=== PATIENT | female | born 1955 | race Caucasian/White ===

== ENCOUNTER 2023-05-13 14:37 | Emergency (ER) | payer MEDICARE, MEDICAID ==
[~2023-05-13] VITALS: Ht 165 cm; Wt 100.0 kg
--- NOTE | 2023-05-13 15:04 | ED General ---
General Chief Complaint: Dizziness/Syncope Stated Complaint: POSS SEIZURE Nursing Triage Note: PT ARRIVED PER EMS. PT CO OF SYNCOPAL EPISODE. PT WAS CUTTING UP CHICKEN AND WENT DOWN TO FLOOR. PT REMEBERS EPISODE. PT STATES R HAND CONTRACTED UP BUT IS OK NOW. PT DENIES HITTING HEAD. PT STATES HAD ETOH POISONING 7 MONTHS AGO AND HAD NOT DRANK SINCE. PAST 4 DAYS HAS DRANK 2 BOXES OF WINE. Source of Information: Patient Exam Limitations: No Limitations History of Present Illness Date Seen by Provider: May 13, 2023 Time Seen by Provider: 14:50 Initial Comments 68-year-old female presents to the ER via EMS. She states that her right arm started shaking and then curled up and she fell to the floor. States she remembers falling, denies any loss of consciousness. She states she was also flopping while she was on the ground. She is concerned this was a seizure. After this episode, she was sweating and very hot. She is requesting a CT of her head, because she has stage IV lung cancer which metastasized to the bones. She states she is worried that it has metastasis to her brain. She states she has been in remission for her lung cancer for 5 years. She states that approximately 2 weeks ago she had shaking in her right arm which lasted for few minutes. She states she now feels back to normal. She denies fevers, dizzi ness, chest pain, abdominal pain, nausea, vomiting, diarrhea. She states that lately she has been having some shortness of breath due to her neighbor smoking. She states that over the past 4 days she has drank 2 boxes of wine. She also has some mild swelling to her right upper jaw, she thinks she has a dental abscess. She denies any other past medical history, does not take any medications regularly. Allergies and Home Medications Allergies Coded Allergies: No Known Drug Allergies (Unverified , 05/13/23) Patient Home Medication List Home Medication List Reviewed: Yes Review of Systems Review of Systems Constitutional: see HPI Past Yozopcb-Sqgygu-Fpodyg Hx Patient Social History Tobacco Use?: No Substance use?: No Alcohol type: Wine Alcohol Frequency: Daily Pt feels they are or have been: No Immunizations Up To Date First/Initial COVID19 Vaccinat: YES Second COVID19 Vaccination Keegan: YES Third COVID19 Vaccination Date: YES Past Medical History Surgery/Hospitalization HX: LUNG CA, PORT Physical Exam Vital Signs Vital Signs - First Documented 05/13/23 05/13/23 14:37 21:19 Temp 37.1 Pulse 108 Resp 18 B/P (MAP) 133/86 (102) Pulse Ox 94 O2 Delivery Room Air Capillary Refill : Less Than 3 Seconds Height, Weight, BMI Height: '" Weight: lbs. oz. kg; 36.00 BMI Method: General Appearance: No Apparent Distress, WD/WN HEENT: TMs Normal, Normal ENT Inspection, Other (Dental abscess right upper teeth, swelling to right upper jaw/face) Neck: Normal Inspection, Supple Respiratory: Lungs Clear, Normal Breath Sounds, No Accessory Muscle Use, No Respiratory Distress Cardiovascular: Regular Rate, Rhythm Extremity: Normal Inspection, Normal Range of Motion Neurologic/Psychiatric: Alert, No Motor/Sensory Deficits (Normal strength), Normal Mood/Affect, splitting machine tender II-XII Norm as Tested Skin: Normal Color, Warm/Dry Progress/Results/Core Measures Suspected Sepsis SIRS Temperature: Pulse: 108 Respiratory Rate: 18 Laboratory Tests 05/13/23 15:04: White Blood Count 14.1H Blood Pressure 133 /86 Mean: 102 Laboratory Tests 05/13/23 15:04: Creatinine 0.88, Platelet Count 279, Total Bilirubin 0.3 Results/Orders Lab Results Laboratory Tests Test 05/13/23 15:00 05/13/23 15:04 05/13/23 15:27 Range/Units Serum Alcohol < 10 <10 MG/DL White Blood Count 14.1 H 4.3-11.0 10^3/uL Red Blood Count 3.36 L 3.80-5.11 10^6/uL Hemoglobin 10.2 L 11.5-16.0 g/dL Hematocrit 31 L 35-52 % Mean Corpuscular Volume 94 80-99 fL Mean Corpuscular Hemoglobin 30 25-34 pg Mean Corpuscular Hemoglobin Concent 33 32-36 g/dL Red Cell Distribution Width 14.7 H 10.0-14.5 % Platelet Count 279 130-400 10^3/uL Mean Platelet Volume 11.7 9.0-12.2 fL Immature Granulocyte % (Auto) 1 % Neutrophils (%) (Auto) 86 H 42-75 % Lymphocytes (%) (Auto) 8 L 12-44 % Monocytes (%) (Auto) 5 0-12 % Eosinophils (%) (Auto) 0 0-10 % Basophils (%) (Auto) 0 0-10 % Neutrophils # (Auto) 12.1 H 1.8-7.8 10^3/uL Lymphocytes # (Auto) 1.1 1.0-4.0 10^3/uL Monocytes # (Auto) 0.7 0.0-1.0 10^3/uL Eosinophils # (Auto) 0.0 0.0-0.3 10^3/uL Basophils # (Auto) 0.1 0.0-0.1 10^3/uL Immature Granulocyte # (Auto) 0.2 H 0.0-0.1 10^3/uL Neutrophils % (Manual) 89 % Lymphocytes % (Manual) 4 % Monocytes % (Manual) 7 % Eosinophils % (Manual) 0 % Basophils % (Manual) 0 % Band Neutrophils 0 % Blood Morphology Comment NORMAL Sodium Level 135 135-145 MMOL/L Potassium Level 4.6 3.6-5.0 MMOL/L Chloride Level 102 98-107 MMOL/L Carbon Dioxide Level 24 21-32 MMOL/L Anion Gap 9 5-14 MMOL/L Blood Urea Nitrogen 12 7-18 MG/DL Creatinine 0.88 0.60-1.30 MG/DL Estimat Glomerular Filtration Rate 72 BUN/Creatinine Ratio 14 Glucose Level 116 H 70-105 MG/DL Calcium Level 8.7 8.5-10.1 MG/DL Corrected Calcium 8.9 8.5-10.1 MG/DL Magnesium Level 1.9 1.6-2.4 MG/DL Total Bilirubin 0.3 0.1-1.0 MG/DL Aspartate Amino Transf (AST/SGOT) 15 5-34 U/L Alanine Aminotransferase (ALT/SGPT) 10 0-55 U/L Alkaline Phosphatase 103 40-136 U/L Total Protein 6.7 6.4-8.2 GM/DL Albumin 3.8 3.2-4.5 GM/DL Urine Color YELLOW Urine Clarity CLEAR Urine pH 6.5 5-9 Urine Specific [place] 1.020 1.016-1.022 Urine Protein NEGATIVE NEGATIVE Urine Glucose (UA) NEGATIVE NEGATIVE Urine Ketones NEGATIVE NEGATIVE Urine Nitrite NEGATIVE NEGATIVE Urine Bilirubin NEGATIVE NEGATIVE Urine Urobilinogen 0.2 < = 1.0 MG/DL Urine Leukocyte Esterase NEGATIVE NEGATIVE Urine RBC (Auto) TRACE-I H NEGATIVE Urine RBC RARE /HPF Urine WBC NONE /HPF Urine Squamous Epithelial Cells 0-2 /HPF Urine Crystals NONE /LPF Urine Bacteria NEGATIVE /HPF Urine Casts PRESENT /LPF Urine Hyaline Casts RARE /LPF Urine Mucus NEGATIVE /LPF Urine Culture Indicated NO Urine Opiates Screen NEGATIVE NEGATIVE Urine Oxycodone Screen NEGATIVE NEGATIVE Urine Methadone Screen NEGATIVE NEGATIVE Urine Propoxyphene Screen NEGATIVE NEGATIVE Urine Barbiturates Screen NEGATIVE NEGATIVE Ur Tricyclic Antidepressants Screen NEGATIVE NEGATIVE Urine Phencyclidine Screen NEGATIVE NEGATIVE Urine Amphetamines Screen NEGATIVE NEGATIVE Urine Methamphetamines Screen NEGATIVE NEGATIVE Urine Benzodiazepines Screen NEGATIVE NEGATIVE Urine Cocaine Screen NEGATIVE NEGATIVE Urine Cannabinoids Screen NEGATIVE NEGATIVE My Orders Orders - SHAHNAZ GAGE APRN Ct Head Wo (05/13/23 14:55) Ed Iv/Invasive Line Start (05/13/23 14:55) Cbc With Automated Diff (05/13/23 14:55) Magnesium (05/13/23 14:55) Ekg Tracing (05/13/23 14:55) Comprehensive Metabolic Panel (05/13/23 14:55) Monitor-Rhythm Ecg Trace Only (05/13/23 14:55) Ns Iv 1000 Ml (Sodium Chloride 0.9%) (05/13/23 15:15) Manual Differential (05/13/23 15:04) Alcohol (05/13/23 15:28) Drug Screen Stat (Urine) (05/13/23 15:28) Ua Culture If Indicated (05/13/23 15:28) Levetiracetam Injection (Keppra Injectio (05/13/23 17:00) Dexamethasone Injection (Decadron Inje (05/13/23 17:00) Amoxicillin/Clavulanate Tablet (Augmenti (05/13/23 17:30) Medications Given in ED Current Medications Medications Dose Ordered Sig/Nhan Route Start Time Stop Time Status Last Admin Dose Admin Amoxicillin/ Clavulanate Potassium 875 mg ONCE ONCE PO 05/13/23 17:30 05/13/23 17:31 DC 05/13/23 17:50 875 MG Dexamethasone Sodium Phosphate 10 mg ONCE ONCE IV 05/13/23 17:00 05/13/23 17:01 DC 05/13/23 17:05 10 MG Levetiracetam 500 mg/Sodium Chloride 105 ml @ 210 mls/hr ONCE ONCE IV 05/13/23 17:00 05/13/23 17:29 DC 05/13/23 17:05 210 MLS/HR Vital Signs/I&O 05/13/23 05/13/23 14:37 21:19 Temp 37.1 36.5 Pulse 108 76 Resp 18 16 B/P (MAP) 133/86 (102) 114/65 Pulse Ox 94 91 O2 Delivery Room Air Capillary Refill : Less Than 3 Seconds Blood Pressure Mean: 102 Progress Note : Progress Note Patient seen and evaluated, resting comfortably in bed, no acute distress. Based on exam and symptoms, work-up initiated including CBC, CMP, magnesium, alc ohol level, UA, UDS, EKG, CT head. IV fluids ordered. She reports that she has withdrawn from alcohol in the past. Symptoms sound like a possible focal seizure. 1540 radiologist called with the read of the CT scan. There is a lesion in the left frontal region likely malignant. There is a minimal 4 mm midline shift. Other differentials include hemorrhage or abscess. 1600 I called [facility] for consult with neurosurgery because patient's oncologist is at [facility]. Labs reviewed at this time. CBC shows elevated WBC 14.1, elevated neutrophil percentage 86. Hemoglobin decreased 10.2, hematocrit decreased 31. CMP grossly normal. Magnesium normal. Urinalysis shows trace intact RBCs, negative for infection. Drug screen negative. Alcohol level negative. Although alcohol level is negative, I do not think that patient is withdrawing from alcohol. The shaking she had earlier could have been alcohol withdrawal, but she currently does not have any tremors. She does not have any other symptoms of alcohol withdrawal at this time. Heart rate has improved. Blood pressure mildly elevated. Her symptoms are more likely related to the lesion in her brain. Elevated WBC could be related to dental abscess. The WBC of elevation could also be related to possible brain abscess which is one of the differentials of the CT, although I think a brain abscess is less likely since she has no fever, headache, mental status changes, focal neurologic deficits, nausea, vomiting, nuchal rigidity. Will give a dose of Augmentin for dental abscess. 1618 Dr. Mark Ospina, neurosurgery, called back with recommendations to either admit or transfer patient. He recommends starting patient on anticonvulsant like Keppra 500 mg twice daily and dexamethasone. He looked at the images, states that the lesion is likely located within the motor strip. States that she will need an MRI, and the MRI will determine the treatment plan. He states that since the lesion is likely within the motor strip, she will likely need an awake craniotomy which would need to be done at . He states that [facility] could accept her as a transfer, but states that she may need to be transferred again to . Results and plan of care discussed with patient. Patient would like to stay here for the MRI if at all possible to avoid being transferred twice. [address] Christina, hospitalist, regarding patient. Discussed the possibility of admitting patient overnight to have an MRI in the morning which would determine where she needs to be transferred to. He recommends that I try to transfer her to tonight instead because it is easier to transfer from the ER and patient. Patient updated on plan of care. She is agreeable to plan. 1640 I called the transfer line. They would like vital signs and labs faxed to them. They also wanted the images clouded, this has been done. Waiting for them to call back. 1721 accepted the transfer. Patient given update. We are calling [facility] for transport at this time. [facility] is currently out on a transport to [place]. 2039 [facility] available now for transport, they have been dispatched and will arrive shortly for transport. ECG Initial ECG Impression Date: May 13, 2023 Initial ECG Impression Time: 15:23 Initial ECG Rate: 96 Initial ECG Rhythm: Normal Sinus Initial ECG Intervals: Normal Initial ECG Impression: Nonspecific Changes Initial ECG Comparisson: No Previous ECG Available Comment Possible incomplete right bundle branch block noted in V1. No ST elevation, significant Q waves, or T wave inversion. Diagnostic Imaging Diagonstic Imaging: CT Plain Films/CT/US/NM/MRI: head Comments [facility], [place] NAME: MICHELLE SPARROW [facility] REC#: [id number] PT STATUS: REG ER : 1955 PHYSICIAN: SHAHNAZ GAGE APRN ADMIT DATE: 05/13/23/ER Signed Date of Exam:05/13/23 CT HEAD WO PROCEDURE: CT head without contrast. TECHNIQUE: Multiple contiguous axial images were obtained through the brain without the use of intravenous contrast. Auto Exposure Controls were utilized during the CT exam to meet ALARA standards for radiation dose reduction. INDICATION: Syncope. COMPARISON: None. FINDINGS: The ventricles and cortical sulci are age-appropriate. There is slight rightward midline shift of about 4 mm. There is a hypodense region in left frontoparietal vertex white matter, near the yates-white junction, with internal lobulated hyperdensity measuring 4.3 x 3.1 cm in size on axial imaging, and 2.6 cm craniocaudal. This appears to have some central hypodensity. The hyperdensity is less dense than expected for acute hemorrhage. No CT evidence of acute territorial ischemia is seen. The calvarium appears intact. Visualized paranasal sinuses demonstrate mucosal thickening in the right maxillary sinus. IMPRESSION: Lobulated hyperdense lesion in the left frontal lobe with mild mass effect. This is thought to most likely represent malignancy, possibly metastasis. Infection or abscess and hemorrhage are in the differential but thought less likely. Recommend MRI with and without contrast Findings discussed with Shahnaz Gage APRN by Dr. Villeda, on 05/13/2023 3:40 PM. Dictated by: Dictated on workstation # [id number] Dict: 05/13/23 1535 Trans: 05/13/23 1601 E [id number] Interpreted by: JEOVANNY VILLEDA MD Electronically signed by: JEOVANNY VILLEDA MD 05/13/23 1601 Departure Impression Primary Impression: Focal seizure Additional Impression: Lesion of left frontal lobe of brain Disposition: 02 XFER SHT-TRM HOSP Condition: Stable Admissions Decision to Admit/Date: May 13, 2023 Time/Decision to Admit Time: 17:22 Transfer Transfer Reason: Exceeds level of care Time Spoke to Accepting Phy: 17:[address] Hernandez, neurosurgery at , accepted patient for transfer. Transfer Time: 17:24 Transfer Facility: [facility] Method of Transfer: EMS SHAHNAZ GAGE APRN May 13, 2023 15:04
[2023-05-13] MEDS ORDERED: NS IV 1000 ML 1,000 ML IV SCH (15:15)
[2023-05-13 15:21] LABS: BASOPHILS # (AUTO) 0.1 10^3/uL (0.0-0.1); BASOPHILS % (AUTO) 0 % (0-10); EOSINOPHILS % (AUTO) 0 % (0-10); HEMATOCRIT 31 % (35-52); HEMOGLOBIN 10.2 g/dL (11.5-16.0); LYMPHOCYTES # (AUTO) 1.1 10^3/uL (1.0-4.0); LYMPHOCYTES % (AUTO) 8 % (12-44); MEAN CORPUSCULAR HEMOGLOBIN 30 pg (25-34); MEAN CORPUSCULAR HGB CONC 33 g/dL (32-36); MEAN CORPUSCULAR VOLUME 94 fL (80-99); MEAN PLATELET VOLUME 11.7 fL (9.0-12.2); MONOCYTES # (AUTO) 0.7 10^3/uL (0.0-1.0); MONOCYTES % (AUTO) 5 % (0-12); NEUTROPHILS # (AUTO) 12.1 10^3/uL (1.8-7.8); NEUTROPHILS % (AUTO) 86 % (42-75); PLATELET COUNT 279 10^3/uL (130-400); WHITE BLOOD COUNT 14.1 10^3/uL (4.3-11.0)
[2023-05-13 15:26] LABS: ALBUMIN 3.8 GM/DL (3.2-4.5); CALCIUM 8.7 MG/DL (8.5-10.1); POTASSIUM 4.6 MMOL/L (3.6-5.0)
[2023-05-13 15:29] LABS: TOTAL PROTEIN 6.7 GM/DL (6.4-8.2)
[2023-05-13 15:36] LABS: BILIRUBIN,TOTAL 0.3 MG/DL (0.1-1.0); CREATININE SERUM 0.88 MG/DL (0.60-1.30); MAGNESIUM 1.9 MG/DL (1.6-2.4)
[2023-05-13 15:36] LABS: BILIRUBIN,URINE NEGATIVE (NEGATIVE); CLARITY,URINE CLEAR; COLOR,URINE YELLOW; GLUCOSE, URINE (UA) NEGATIVE (NEGATIVE); KETONES,URINE NEGATIVE (NEGATIVE); LEUKOCYTE ESTERASE ,URINE NEGATIVE (NEGATIVE); NITRITE,URINE NEGATIVE (NEGATIVE); PH,URINE 6.5 (5-9); PROTEIN,URINE NEGATIVE (NEGATIVE)
--- NOTE | 2023-05-13 15:46 | Diagnostic Imaging Report ---
PROCEDURE: CT head without contrast. TECHNIQUE: Multiple contiguous axial images were obtained through the brain without the use of intravenous contrast. Auto Exposure Controls were utilized during the CT exam to meet ALARA standards for radiation dose reduction. INDICATION: Syncope. COMPARISON: None. FINDINGS: The ventricles and cortical sulci are age-appropriate. There is slight rightward midline shift of about 4 mm. There is a hypodense region in left frontoparietal vertex white matter, near the yates-white junction, with internal lobulated hyperdensity measuring 4.3 x 3.1 cm in size on axial imaging, and 2.6 cm craniocaudal. This appears to have some central hypodensity. The hyperdensity is less dense than expected for acute hemorrhage. No CT evidence of acute territorial ischemia is seen. The calvarium appears intact. Visualized paranasal sinuses demonstrate mucosal thickening in the right maxillary sinus. IMPRESSION: Lobulated hyperdense lesion in the left frontal lobe with mild mass effect. This is thought to most likely represent malignancy, possibly metastasis. Infection or abscess and hemorrhage are in the differential but thought less likely. Recommend MRI with and without contrast Findings discussed with Shahnaz Wei APRN by Dr. Goldberg, on 05/13/2023 3:40 PM. Dictated by: Dictated on workstation # [id number]
[2023-05-13 15:47] LABS: BACTERIA,URINE NEGATIVE /HPF; HYALINE CASTS, URINE RARE /LPF; RBC,URINE RARE /HPF; SQUAMOUS EPITHELIAL CELL,UR 0-2 /HPF
[2023-05-13 15:49] LABS: AMPHETAMINE SCREEN, URINE NEGATIVE (NEGATIVE); BARBITURATE SCREEN URINE NEGATIVE (NEGATIVE); BENZODIAZEPINES SCREEN URINE NEGATIVE (NEGATIVE); CANNABINOID SCREEN, URINE NEGATIVE (NEGATIVE); COCAINE SCREEN URINE NEGATIVE (NEGATIVE); METHADONE STAT NEGATIVE (NEGATIVE); OPIATE SCREEN URINE NEGATIVE (NEGATIVE); OXYCODONE STAT NEGATIVE (NEGATIVE); PROPOXYPHENE STAT NEGATIVE (NEGATIVE); TRICYCLIC ANTIDEPRESSANTS SCRE NEGATIVE (NEGATIVE)
[2023-05-13 15:52] LABS: BAND NEUTROPHILS 0 %; BASOPHILS % (MANUAL) 0 %; EOSINOPHILS % (MANUAL) 0 %; LYMPHOCYTES % (MANUAL) 4 %; MONOCYTES % (MANUAL) 7 %; NEUTROPHILS % (MANUAL) 89 %; RBC MORPH NORMAL
[2023-05-13] MEDS ORDERED: AUGMENTIN 875 MG TAB (AMOXICILLIN/CLAVULANATE) PO ONE (17:30)
[2023-05-13 21:19] VITALS: BP 114/65
== END 2023-05-13 21:20 | disposition short-term general hospital (02) ==
LOC: ER 14:41
DX: R56.9 Unspecified convulsions (principal); G93.89 Other specified disorders of brain; K04.7 Periapical abscess without sinus; R03.0 Elevated blood-pressure reading, without diagnosis of hypertension; W18.30XA Fall on same level, unspecified, initial encounter
CPT/HCPCS: 70450; 80053; 80306; 81000; 83735; 85007; 85027; 93005; 93041; 99284; G0480; 36415; 80320